=== PATIENT | male | born 1950 | race Hispanic/Latino ===

== ENCOUNTER 2021-01-08 16:06 | Emergency (ER) | payer OTHER ==
[2021-01-08 16:35] LABS: BASOPHILS % (AUTO) 0.6 % (0.0-5.0); EOSINOPHILS % (AUTO) 1.2 % (0.0-8.0); HEMATOCRIT 37.2 % (42-54); LYMPHOCYTES % (AUTO) 13.8 % (21.0-51.0); MEAN CORPUSCULAR HEMOGLOBIN 32.8 pg (27.0-33.0); MEAN CORPUSCULAR HGB CONC 35.8 g/dL (32.0-36.0); MEAN CORPUSCULAR VOLUME 91.6 fL (79-99); MONOCYTES % (AUTO) 5.7 % (3.0-13.0); NEUTROPHILS % (AUTO) 78.4 % (40.0-77.0); PLATELET COUNT (AUTO) 225 K/uL (130-400); RED BLOOD CELL COUNT(AUTO) 4.06 MIL/uL (4.50-6.20); RED CELL DISTRIBUTION WIDTH 13.1 % (11.0-15.5); WHITE BLOOD COUNT (AUTO) 9.8 K/uL (4.8-10.8)
[2021-01-08 16:49] LABS: CREATININE 0.7 mg/dL (0.5-1.5); POTASSIUM 3.8 mmol/L (3.5-5.1)
[2021-01-08 16:51] LABS: INR 1.01 (0.85-1.15)
[2021-01-08 16:52] LABS: PARTIAL THROMBOPLASTIN TIME 27.2 SEC (26.3-35.5)
[2021-01-08 16:54] LABS: ALBUMIN 3.7 g/dL (3.5-5.0); BILIRUBIN,TOTAL 0.5 mg/dL (0.2-1.0); TOTAL PROTEIN, SERUM 6.9 g/dL (6.0-8.3)
[2021-01-08 17:25] LABS: APPEARANCE,URINE Clear (CLEAR); BILIRUBIN,URINE Negative (NEGATIVE); COLOR,URINE Yellow (YELLOW); GLUCOSE, URINE (UA) Negative (NEGATIVE); KETONES,URINE Negative (NEGATIVE); LEUKOCYTE ESTERASE ,URINE Trace (NEGATIVE); NITRATE,URINE Negative (NEGATIVE); OCCULT BLOOD,URINE Small (NEGATIVE); PH,URINE 5.5 (5.0-8.0); PROTEIN,URINE Negative (NEGATIVE)
[2021-01-08 17:32] LABS: BACTERIA,URINE Rare /HPF (None Seen); RBC,URINE 0-1 /HPF (0-1)
[2021-01-08 17:33] LABS: SQUAMOUS EPITHELIAL CELL,UR Rare /HPF (0-2)
[2021-01-08] MEDS ORDERED: CEPHALEXIN 500 MG CAPSULE ONE (17:55)
== END 2021-01-08 18:13 | disposition home or self-care (01) ==
LOC: EDH 16:06
DX: N30.90 Cystitis, unspecified without hematuria (principal); R55 Syncope and collapse; I10 Essential (primary) hypertension; Z72.0 Tobacco use
CPT/HCPCS: 36415; 70450; 71045; 72125; 80053; 81001; 82948; 84484; 85025; 85610; 85730; 93005

== ENCOUNTER 2022-09-11 00:23 | Emergency (ER) | payer OTHER, MEDICARE ==
[~2022-09-11] VITALS: Ht 175.3 cm; Wt 55.3 kg
[2022-09-11 00:54] VITALS: BP 134/76
[2022-09-11] MEDS ORDERED: IBUP-1493 PO (00:59)
[2022-09-11] MEDS ORDERED: OXYCODONE/ACETAMIN 5/325MG TAB PO ONE (01:00)
[2022-09-11] MEDS ORDERED: AMOX500C2 PO (01:01)
== END 2022-09-11 01:35 | disposition home or self-care (01) ==
LOC: EDH 00:23
DX: K08.89 Other specified disorders of teeth and supporting structures (principal); K02.9 Dental caries, unspecified; F32.A Depression, unspecified; G62.9 Polyneuropathy, unspecified; I73.9 Peripheral vascular disease, unspecified; E78.5 Hyperlipidemia, unspecified; I10 Essential (primary) hypertension

== ENCOUNTER 2025-02-18 22:01 | Emergency (ER) | payer OTHER, MEDICARE ==
[~2025-02-18] VITALS: Ht 172.7 cm; Wt 65.8 kg
[~2025-02-18 22:01] MED LIST: ASPI-1005 PO; ATOR40TA69 PO; ATOR40TA71 PO; CILO100T3 PO; FOLI0.4T6 PO; LEVO750T68 PO; LOSA50TA64 PO; PANT40TA PO
[2025-02-18 22:23] LABS: BASOPHILS # (AUTO) 0.05 K/uL (0.00-0.20); BASOPHILS % (AUTO) 0.8 % (0.0-5.0); EOSINOPHILS # (AUTO) 0.13 K/uL (0.00-0.70); HEMATOCRIT 38.6 % (42-54); IMMATURE GRANULOCYTE ABSOLUTE 0.02 K/uL (0-1); LYMPHOCYTES # (AUTO) 1.3 K/uL (1.0-4.8); LYMPHOCYTES % (AUTO) 18.9 % (21.0-51.0); MEAN CORPUSCULAR HGB CONC 33.9 g/dL (32.0-36.0); MEAN CORPUSCULAR VOLUME 94.1 fL (79-99); MONOCYTES # (AUTO) 0.4 K/uL (0.1-1.0); MONOCYTES % (AUTO) 5.7 % (3.0-13.0); NEUTROPHILS # (AUTO) 4.8 K/uL (1.8-7.7); NEUTROPHILS % (AUTO) 72.3 % (40.0-77.0); PLATELET COUNT (AUTO) 202 K/uL (130-400); RED CELL DISTRIBUTION WIDTH 11.7 % (11.0-15.5); WHITE BLOOD COUNT (AUTO) 6.6 K/uL (4.8-10.8)
[2025-02-18 22:30] VITALS: TEMP 98.1
[2025-02-18] MEDS ORDERED: leveTIRACEtam 500 MG/5 ML SD VIAL IV SCH (22:30)
[2025-02-18 22:32] LABS: CREATININE 0.8 mg/dL (0.5-1.3); POTASSIUM 3.9 mmol/L (3.5-5.1)
[2025-02-18 22:37] LABS: MAGNESIUM 1.8 mg/dL (1.80-2.40)
--- NOTE | 2025-02-18 22:42 | HMCIMG ---
CT HEAD/BRAIN W/O CONTRAST HISTORY: Seizures COMPARISON: None TECHNIQUE: Multiple sequential axial images of the head were obtained from the base of the skull through vertex. Patient was not given contrast through intravenous route. FINDINGS: The ventricles and extraventricular CSF spaces are dilated consistent with cerebral atrophy. Nonspecific white matter changes seen. There is no midline shift, mass effect or herniation. No acute intracranial bleed is seen. Visualized portion of the paranasal sinuses are grossly within normal limits. IMPRESSION: 1. No acute intracranial bleed is seen. 2. Atrophy with white matter changes. CT was performed with one or more following dose reduction techniques: automated exposure control, adjustment of the mA and kv according to patient's size, or use of a iterative reconstruction technique.
--- NOTE | 2025-02-18 22:44 | HMCIMG ---
CHEST 1VW HISTORY: Shortness of breath COMPARISON: 01/23/2025 FINDINGS: A frontal projection of the chest was obtained. Mild bilateral pulmonary infiltrates are seen may be related to mild pulmonary vascular congestion with possible superimposed pneumonitis. The heart is borderline enlarged. Degenerative changes are seen. No evidence of aortic calcification is seen. IMPRESSION: 1. Mild bilateral pulmonary infiltrates are seen may be related to mild pulmonary vascular congestion with possible superimposed pneumonitis.
[2025-02-18 22:45] LABS: B-TYPE NATRIURETIC PEPTIDE 124 pg/mL (0-100)
[2025-02-18] MEDS: 0.9%NACL 1000ML 1,000 ML IV ONE (22:45)
[2025-02-18] MEDS: leveTIRACEtam 500 MG/5 ML SD V 1,000 MG in 0.9%NACL 100ML 100 ML IV ONE (22:45)
--- NOTE | 2025-02-18 23:20 | ERN ---
General Chief Complaint: Seizure Stated Complaint: SEIZURE Time Seen by MD: 22:15 Time Seen by Midlevel: 22:15 Source: patient History of Present Illness Initial Comments The patient is a 75-year-old male with a past medical history of seizures and tobacco use presenting to the emergency department via EMS following a seizure. According to EMS the patient had a seizure at home that allegedly lasted 5 minutes. This occurred while the patient was in bed. No head trauma was repor shannon. According to EMS the patient was incontinent upon their arrival on scene. He was currently taking Keppra but it is unknown if the patient is compliant with his medication. Past medical history includes type 2 diabetes, dementia, hyperlipidemia, hypertension, and seizures. On arrival with the patient was back to his baseline and it was answering questions appropriately. His only complaint is dental pain. Allergies: Coded Allergies: No Known Drug Allergies (Unverified Allergy, Unknown, 01/08/21) Home Meds Active Scripts Levofloxacin (Levaquin 750Mg Tabs) 750 Mg Tablet, 750 MG PO DAILY, #7 TAB 0 Refills Prov:EMETERIO REYES MD 12/22/23 Pantoprazole Sodium (Protonix) 40 Mg Tablet.dr, 40 MG PO Q24H, #30 TAB 0 Refills Prov:EMETERIO REYES MD 12/22/23 Atorvastatin Calcium (LIPITOR) 40 Mg Tablet, 40 MG PO HS, #30 TAB 0 Refills Prov:EMETERIO REYES MD 12/22/23 Aspirin (ASPIRIN 81MG CHEW TAB) 81 Mg Tab.chew, 81 MG PO Q24H, #30 TAB.CHEW 0 Refills Prov:EMETERIO REYES MD 12/22/23 Reported Medications Folic Acid (Folic Acid) 0.4 Mg Tablet, 1000 MCG PO DAILY, TAB 12/17/23 Cilostazol (Cilostazol) 100 Mg Tablet, 100 MG PO BID, TAB 12/17/23 Losartan Potassium (Losartan Potassium) 50 Mg Tablet, 50 MG PO DAILY, TAB 12/17/23 Atorvastatin Calcium (Atorvastatin Calcium) 40 Mg Tablet, 40 MG PO DAILY, TAB 12/17/23 Past Medical History Past Medical History: Dementia, Diabetes-Type II, High Cholesterol, Hypertension, Seizure Medical History Other: DENTAL Past Surgical History: Other Family History Family History: DM, HTN Social History Social History: ETOH, Lives with family ROS Dictation CONSTITUTIONAL: Negative except for HPI HEAD/FACE: Negative except for HPI EENT: Negative except for HPI RESPIRATORY: Negative except for HPI GASTROINTESTINAL/ABDOMINAL: Negative except for HPI GENITOURINARY: Negative except for HPI MUSCULOSKELETAL: Negative except for HPI INTEGUMENTARY: Negative except for HPI NEUROLOGICAL/PSYCH: Negative except for HPI HEMATOLOGIC/LYMPHATIC: Negative except for HPI All Systems Negative, Except as noted above. 13 point review of systems assessed and all negative except for above. Physical Exam Physical Exam Dictation Vital Signs reviewed General Appearance: Alert, oriented x 3, no acute distress, well developed, nourished. Head and Face: non-traumatic. Eyes: PERRL, pink conjunctivas, eyelid no trauma, anterior chamber with arcus senilis. Ears: Pinnas intact and no signs of trauma or erythema ear canals clear and no discharge TM no erythema Nose: No discharge, no bleeding. Oropharynx: Poor dentition throughout pharynx clear,no erythema, tonsils no exudates, no abscesses noted, mucous membrane moist Neck: Supple, non-tender, no thyromegaly, no masses, no JVD, no bruits Breast:Deferred Chest:No tenderness, no crepitus, no paradoxical movement, no retractions Lungs:Clear, well-ventilated, symmetric, no rales, no wheezing, no rhonchi, no stridor, good breath sounds bilaterally Heart: Regular rate, regular rhythm, no murmur, no gallops Vascular: no peripheral edema, Abdomen: Soft, positive bowel sounds, nondistended, no guarding, nontender, no rebound, no masses no hepatomegaly, no splenomegaly, no Morales's sign, no hernias. Rectal: Deferred Genital: Deferred Neurological: Normal speech, motor function intact, sensory function intact Musculoskeletal: Neck nontender, full range of motion, back nontender, full range of motion, Extremities: nontender, full range of motion Skin: Color pink, dry, no turgor, no rash, no lacerations, no abrasions, no contusions. Lymphatic: Deferred Results Laboratory and Microbiology Lab and Micro Result Laboratory Tests Test 02/18/25 22:12 White Blood Count 6.6 K/uL (4.8-10.8) Red Blood Count 4.10 MIL/uL (4.50-6.20) L Hemoglobin 13.1 g/dL (14.0-18.0) L Hematocrit 38.6 % (42-54) L Mean Corpuscular Volume 94.1 fL (79-99) Mean Corpuscular Hemoglobin 32.0 pg (27.0-33.0) Mean Corpuscular Hemoglobin Concent 33.9 g/dL (32.0-36.0) Red Cell Distribution Width 11.7 % (11.0-15.5) Platelet Count 202 K/uL (130-400) Mean Platelet Volume 10.2 fL (7.5-10.5) Immature Granulocyte % (Auto) 0.3 % (0-1) Neutrophils (%) (Auto) 72.3 % (40.0-77.0) Lymphocytes (%) (Auto) 18.9 % (21.0-51.0) L Monocytes (%) (Auto) 5.7 % (3.0-13.0) Eosinophils (%) (Auto) 2.0 % (0.0-8.0) Basophils (%) (Auto) 0.8 % (0.0-5.0) Neutrophils # (Auto) 4.8 K/uL (1.8-7.7) Lymphocytes # (Auto) 1.3 K/uL (1.0-4.8) Monocytes # (Auto) 0.4 K/uL (0.1-1.0) Eosinophils # (Auto) 0.13 K/uL (0.00-0.70) Basophils # (Auto) 0.05 K/uL (0.00-0.20) Absolute Immature Granulocyte (auto 0.02 K/uL (0-1) Nucleated Red Blood Cells 0.0 % (0.0-0.19) Sodium Level 141 mmol/L (136-145) Potassium Level 3.9 mmol/L (3.5-5.1) Chloride Level 106 mmol/L (101-111) Carbon Dioxide Level 28 mmol/L (21-32) Blood Urea Nitrogen 9 mg/dL (7-18) Creatinine 0.8 mg/dL (0.5-1.3) Glomerular Filtration Rate Calc 93 mL/min (>90) Random Glucose 109 mg/dL (70-105) H Total Calcium 8.1 mg/dL (8.5-10.1) L Magnesium Level 1.80 mg/dL (1.80-2.40) Total Creatine Kinase 160 U/L (21-232) # Troponin I High Sensitivity 8 ng/L (4-75) B-Type Natriuretic Peptide 124 pg/mL (0-100) H Labs Reviewed?: Yes MDM MDM: The patient is a 75-year-old male with a past medical history of seizures and tobacco use presenting to the emergency department via EMS following a seizure. According to EMS the patient had a seizure at home that allegedly lasted 5 minutes. This occurred while the patient was in bed. No head trauma was reported. According to EMS the patient was incontinent upon their arrival on scene. He was currently taking Keppra but it is unknown if the patient is compliant with his medication. Past medical history includes type 2 diabetes, dementia, hyperlipidemia, hypertension, and seizures. On arrival with the patient was back to his baseline and it was answering questions appropriately. His only complaint is dental pain.. Initial vital signs are stable. On physical examination the patient was in no acute distress. He was alert and oriented x3. He was able to answer simple questions and follow commands. It appears the patient was back to his baseline. His CBC shows no leukocytosis. Hemoglobin is stable at 13.1. No thrombocytopenia. Chemistries are stable. BUN and creatinine are normal. Troponin is negative. Electrolytes are unremarkable. CT head shows no acute intracranial bleed. Chest x-ray shows chronic changes. No acute pneumonia, pleural effusion, or pneumothorax noted. Patient was observed in the emergency department has remained seizure-free. He was given a loading dose of Keppra and IV fluids. The patient will be discharged home with close return precautions. Differential diagnosis: Breakthrough seizure, medication noncompliance, urinary tract infection There are no social concerns with this patient. Prescription drug management Prescriptions will include: None Medical management and examination interpretation discussions were had by me with other qualified healthcare professionals as indicated for the patient's care. ED Course Orders Procedure Category Date Status Time Cbc With Differential LAB 02/18/25 Complete 22:15 Basic Metabolic Panel LAB 02/18/25 Complete 22:15 B-Type Natriuretic LAB 02/18/25 Complete Peptide 22:15 Creatine Kinase, Total LAB 02/18/25 Complete 22:15 Magnesium LAB 02/18/25 Complete 22:15 Drug Screen Urine LAB 02/18/25 Logged 22:15 Urinalysis Profile LAB 02/18/25 Logged 22:15 Troponin I High LAB 02/18/25 Complete Sensitivity 22:15 Chest 1vw RAD 02/18/25 Resulted 22:15 Ct Head/Brain W/O CT 02/18/25 Resulted Contrast 22:15 Levetiracetam 500 PHA 02/18/25 Complete Mg/5 Ml Sd V (Keppra 5 22:30 12 Lead Ekg Tracing- EKG 02/18/25 Logged Technical 22:15 0.9%Nacl 1000ml (Ns PHA 02/18/25 Complete 1000ml) 22:30 Levetiracetam 500 PHA 02/18/25 Complete Mg/5 Ml Sd V (Keppra 5 22:30 Ketorolac PHA 02/18/25 Verified Tromethamine 15mg/Ml 23:30 Current Medications Medications (Trade) Dose Ordered Sig/Cordell Route PRN Reason Start Time Stop Time Status Last Admin Dose Admin Levetiracetam (kepPRA 500 MG/5 ML SD VIAL) 1,000 mg ONCE IV 02/18/25 22:30 02/18/25 22:20 DC Levetiracetam 1000 mg/Sodium Chloride 100 ml @ 400 mls/hr ONCE ONCE IV 02/18/25 22:30 02/18/25 22:44 DC 02/18/25 22:45 Sodium Chloride 1,000 ml @ 0 mls/hr ONCE ONCE IV 02/18/25 22:30 02/18/25 22:31 DC 02/18/25 22:45 Vital Signs Date Time Temp Pulse Resp B/P (MAP) Pulse Ox O2 Delivery O2 Flow Rate FiO2 02/18/25 22:30 98.1 61 16 120/67 96 Room Air* 0 21 02/18/25 22:02 98.1 62 16 148/80 97 Room Air 0 [place] [address] [address] IMAGING REPORT Signed PATIENT: SALMA MADDOX MR#: [id number] : 1950 SEX: M AGE: 75 LOCATION: ED ORDER 15 STATUS: REG ER REPORT#: [id number] SERVICE 14 REASON: seizure ORDERING PHYSICIAN: JIMMIE HADDAD PROCEDURE: HEAD WO - CT HEAD/BRAIN W/O CONTRAST CT HEAD/BRAIN W/O CONTRAST HISTORY: Seizures COMPARISON: None TECHNIQUE: Multiple sequential axial images of the head were obtained from the base of the skull through vertex. Patient was not given contrast through intravenous route. FINDINGS: The ventricles and extraventricular CSF spaces are dilated consistent with cerebral atrophy. Nonspecific white matter changes seen. There is no midline shift, mass effect or herniation. No acute intracranial bleed is seen. Visualized portion of the paranasal sinuses are grossly within normal limits. IMPRESSION: 1. No acute intracranial bleed is seen. 2. Atrophy with white matter changes. CT was performed with one or more following dose reduction techniques: automated exposure control, adjustment of the mA and kv according to patient's size, or use of a iterative reconstruction technique. DICTATED BY: DOREEN PRASAD MD DATE: 02/18/252233 ELECTRONICALLY SIGNED BY: DOREEN PRASAD MD DATE: 02/18/252241 [place] [address] IMAGING REPORT Signed PATIENT: SALMA MADDOX MR#: [id number] : 1950 SEX: M AGE: 75 LOCATION: [facility] ORDER 15 STATUS: REG [facility] REPORT#: [id number] SERVICE 14 REASON: sob ORDERING PHYSICIAN: JIMMIE HADDAD PROCEDURE: CXR1VW - CHEST 1VW CHEST 1VW HISTORY: Shortness of breath COMPARISON: 01/23/2025 FINDINGS: A frontal projection of the chest was obtained. Mild bilateral pulmonary infiltrates are seen may be related to mild pulmonary vascular congestion with possible superimposed pneumonitis. The heart is borderline enlarged. Degenerative changes are seen. No evidence of aortic calcification is seen. IMPRESSION: 1. Mild bilateral pulmonary infiltrates are seen may be related to mild pulmonary vascular congestion with possible superimposed pneumonitis. DICTATED BY: DOREEN PRASAD MD DATE: 02/18/252239 ELECTRONICALLY SIGNED BY: DOREEN PRASAD MD DATE: 02/18/252243 DX & DISP Disposition: Discharge Departure Impression: Primary Impression: Seizure Condition: Stable Additional Instructions: Your blood work today is unremarkable Your CT scan of the head is normal. Your chest x-ray does not show any acute abnormalities. Please take Keppra as prescribed. Return to the ER for any new or worsening symptoms Referrals: ALLYSON MCKEON M.D. (PCP) I have reviewed the case, and I agree with, Diagnosis and Plan I performed the substantive portion of the visit. I have reviewed and personally made and approve the management plan that is documented in the note by myself or the [facility]. I acknowledge for responsibility for the patient's management plan. JIMMIE HADDAD February 18, 2025 23:20
[2025-02-18] MEDS: ketOROlac 15MG/ML VIAL (15MG/ML) IV ONE (23:23)
--- NOTE | 2025-02-18 23:39 | NUR ---
CALLED [facility] [phone] RE: PT BEING DISCHARGED. PT WAITING ON RIDE
[2025-02-19 00:05] VITALS: BP 126/61; PULSE 71; RESP 16; O2SAT 96
--- NOTE | 2025-02-19 05:47 | EKG ---
[facility] Test Date: 2025-02-18 Test Time: 22:34:53 Pat Name: JOSE MANUEL TAN Department: ED Room: Gender: M Flatbed Stitcher: Allie FLORES : 1950 Requested By: JIMMIE HADDAD Order Number: [id number] Reading MD: Jose Manuel Kidd Measurements Intervals [place] Rate: 51 P: 66 SD: 152 QRS: 60 QRSD: 92 T: 68 QT: 435 QTc: 403 Interpretive Statements Sinus rhythm Compared to ECG 01/23/2025 06:07:03 No significant changes Electronically Signed On 02-19-2025 11:09:04 CDT by Jose Manuel Kidd Please click the below link to view image of tracing.
== END 2025-02-19 00:40 | disposition home or self-care (01) ==
LOC: EDH 22:01
DX: R56.9 Unspecified convulsions (principal); E11.9 Type 2 diabetes mellitus without complications; E78.00 Pure hypercholesterolemia, unspecified; F03.90 Unspecified dementia, unspecified severity, without behavioral disturbance, psychotic disturbance, mood disturbance, and anxiety; I10 Essential (primary) hypertension; Z79.02 Long term (current) use of antithrombotics/antiplatelets; Z79.82 Long term (current) use of aspirin; Z79.899 Other long term (current) drug therapy; Z98.890 Other specified postprocedural states
CPT/HCPCS: 99284; 96365; 70450; 71045; 96375; 82550; 83735; 84484; 80048; 83880; 85025; 36415; 93005; J1885; J1953